=== PATIENT | female | born 1965 | race Two or more races ===

== ENCOUNTER 2022-10-18 12:12 | Outpatient (REF) | payer OTHER, SELFPAY ==
--- NOTE | ~2022-10-18 | MM_ITS ---
EXAMINATION: MM SCREENING DIGITAL BREAST TOMOSYNTHESIS, BILATERAL CLINICAL INFORMATION: Screening. Asymptomatic. Prior outside mammography from [place] 2021, currently unavailable. The lifetime risk of breast cancer based on the Tyrer-Cuzick Model is 9%. COMPARISON: None. TECHNIQUE: Digital breast tomosynthesis is performed in both the craniocaudal and mediolateral oblique views along with computer-aided detection (CAD). Synthesized 2D images are generated from the tomosynthesis. FINDINGS: The breasts are almost entirely fatty (ACR BI-RADS breast composition Category a). Background stromal markings are normal and there is no architectural abnormality. There are no significant masses, abnormal calcifications, or other abnormalities. The axilla and skin contours are unremarkable. Radiology department staff will attempt to retrieve prior outside mammography from [place] to allow for comparison in an addendum report. MM/MM tomosynthesis screening BI IMPRESSION: No mammographic evidence of malignancy. ASSESSMENT: BI-RADS 1: Negative RECOMMENDATION: Routine annual mammography screening. This patient's information was entered into a reminder system with a target due date for their next mammogram.
== END 2022-10-18 12:13 | disposition home or self-care (01) ==
LOC: HO.MAMMO 12:12
PROVIDERS: PCP Student in an Organized Health Care Education/Training Program; Visit Provider Student in an Organized Health Care Education/Training Program
DX: Z12.31 Encounter for screening mammogram for malignant neoplasm of breast (principal)
CPT/HCPCS: 77063; 77067